=== PATIENT | female | born 1970 | race Hispanic/Latino ===

== ENCOUNTER → 2020-09-16 13:47 | Outpatient (CLI) | payer OTHER, SELFPAY ==
--- NOTE | ~2020-09-16 | US_ITS ---
EXAMINATION: US pelvic complete EXAM DATE: 09/16/2020 14:10 INDICATION: N85.2 - Hypertrophy of uterus . Pelvic pain and pressure. TECHNIQUE: Pelvic transabdominal and transvaginal sonogram was performed. There are multiple graysca le and Doppler images available for interpretation. There is no prior study for comparison. FINDINGS: Uterus measures 11.0 x 6.1 x 7.6 cm, with several fibroids measuring up to 4.8 cm. Endomet rial stripe measures 5 mm, within normal limits. There is no free pelvic fluid. Right adnexa: The ovary is not identified. There is no adnexal mass. Left adnexa: The ovary is not identified. There is no adnexal mass. IMPRESSION: 1. Fibroid uterus. Reviewed, dictated and finalized at location B. OMIMIST IMPRESSION: 1. Fibroid uterus.
== END ==
PROVIDERS: PCP Family Medicine; Visit Provider Family Medicine
DX: N85.2 Hypertrophy of uterus (principal); D25.9 Leiomyoma of uterus, unspecified
CPT/HCPCS: 76856

== ENCOUNTER 2021-08-05 08:02 | Outpatient (CLI) | payer OTHER, SELFPAY ==
--- NOTE | 2021-08-05 08:00 | ECG_ITS ---
Measurements Intervals [place] Rate: 66 P: 28 MT: 128 QRS: 9 QRSD: 97 T: 45 QT: 408 QTc: 430 Interpretive Statements SINUS RHYTHM BORDERLINE R WAVE PROGRESSION, ANTERIOR LEADS BASELINE WANDER- V6 BORDERLINE ECG Electronically Signed On 08-05-2021 8:26:40 PIZZA BAKER by Rm Kenney D.O.
[2021-08-05 08:40] LABS: Anion Gap 9 mmol/L (8-16); Blood Urea Nitrogen 16 mg/dL (7-17); Calcium 9.3 mg/dL (8.4-10.2); Carbon Dioxide 27 mmol/L (22-30); Chloride 100 mmol/L (98-107); Estimated Glomerular Filt Rate > 60; Glucose 104 mg/dL (65-110); Sodium 136 mmol/L (137-145)
== END 2021-08-05 08:03 | disposition home or self-care (01) ==
LOC: ANHSURGERY 08:06
PROVIDERS: Anesthesiology; PCP Family Medicine; Visit Provider Obstetrics & Gynecology
DX: D25.9 Leiomyoma of uterus, unspecified (principal); I10 Essential (primary) hypertension; Z79.899 Other long term (current) drug therapy; Z01.818 Encounter for other preprocedural examination; R94.31 Abnormal electrocardiogram [ECG] [EKG]
CPT/HCPCS: 36415; 80048; 86850; 86900; 86901; 93005

== ENCOUNTER 2021-09-13 10:32 | Outpatient (CLI) | payer OTHER, SELFPAY ==
[2021-09-13 11:30] LABS: Basophils Absolute Auto 0.1 K/mm3 (0.0-0.1); Basophils Percent Auto 0.9 % (0.2-1.2); Eosinophils Absolute Auto 0.5 K/mm3 (0-0.3); Eosinophils Percent Auto 7.6 % (0-4.4); Hematocrit 40.2 % (37.0-47.0); Hemoglobin 13.5 g/dL (12.0-15.0); Immature Granulocyte Absolute 0.02 K/mm3 (0.00-0.031); Immature Granulocyte Percent A 0.3 % (0-0.5); Lymphocytes Absolute Auto 2.05 K/mm3 (0.9-3.2); Lymphocytes Percent Auto 29.5 % (18.3-44.2); Mean Corpuscular HGB Conc 33.6 g/dl (32-36); Mean Corpuscular Hemoglobin 28.6 pg (26-34); Mean Corpuscular Volume 85.2 fl (80-100); Mean Platelet Volume 10.3 fl (7.4-10.4); Monocytes Absolute Auto 0.4 K/mm3 (0.1-0.6); Monocytes Percent Auto 5.2 % (2.6-8.5); Neutrophils Absolute Auto 3.9 K/mm3 (1.3-6.7); Neutrophils Percent Auto 56.5 % (45.5-73.1); Platelet Count Result 265 k/mm3 (150-375); Red Blood Count 4.72 M/mm3 (4.2-5.4); Red Cell Distribution Width 14.3 % (11.5-14.5); White Blood Count 6.9 K/mm3 (4.5-10.0)
== END 2021-09-13 10:33 | disposition home or self-care (01) ==
LOC: ANHSURGERY 10:35
PROVIDERS: PCP Family Medicine; Visit Provider Obstetrics & Gynecology
DX: D25.9 Leiomyoma of uterus, unspecified (principal); Z01.818 Encounter for other preprocedural examination
CPT/HCPCS: 36415; 85025; 86850; 86900; 86901

== ENCOUNTER 2021-09-16 00:35 | Day surgery (SDC) | payer OTHER, SELFPAY ==
[2021-09-12 14:26] VITALS: BMI 28.3
--- NOTE | 2021-09-12 14:33 | PC.NURSE ---
Report to the Outpatient Waiting Room, entrance under the green pavilion located off [facility], at time 8:00 on date 09/16/21. OR Time: 10:00. - You will be asked a series of questions to screen for COVID 19 for your protection. - A mask is required within the hospital. - No visitors are allowed at this time. Preoperative COVID Testing Requirements: No COVID Test needed if: (proof is required; if not received patient will have Rapid Test prior to entry) - Patient has received COVID Vaccine at least 14 days prior to procedure date or - Patient has positive COVID test result within last 90 days of surgery date. COVID Test needed if above criteria is not met Patients may have clear liquids (water, carbonated beverages, clear teas, apple juice) until 3 hours prior to surgery (7:00) with a maximum of 20 ounces. - No food from midnight until time of surgery Take the following medications with a SIP of water the morning of surgery: SERTRALINE Medications to discontinue per physician: N/A Date to take last dose: N/A Please no make-up, nail luxembourgish, hairspray, perfume, deodorant, or body powder the day of surgery. No jewelry (including any body piercings) or valuables the day of surgery, leave them at home. Please take a shower or bath the night before, or the morning of, surgery with an antibacterial soap. Wear comfortable, loose fitting clothing. - Jewelry must be removed prior to entering the operating room. Rings and piercings that are not removed may be cut off. - The hospital will not accept responsibility for valuables. - Please leave all valuables, including medications, at home the day of surgery. If you are going home after surgery, a licensed stock car driver must drive you home. - NO public transportation without another adult. - We recommend that an adult stay with you for 24 hours following discharge. - We also recommend that you do not drive, make important decision, drink alcoholic beverages, or take any drugs that were not prescribed by your health care provider for at least 24 hours after your discharge time. Follow any additional instructions given to you from your surgeon. Telephone instructions given to JASPER BROWNE and asked if any additional questions and then verbalized understanding. Patient advised to call surgeon office or pre surgery nurse liaison [phone] if any additional questions.
--- NOTE | 2021-09-14 07:50 | PM.IMHP ---
H&P: HPI History of Present Illness Date/Time: 09/14/21 07:50 51-year-old female admitted for robotic total vaginal hysterectomy and bilateral salpingectomies secondary to an enlarged uterus pelvic pain and heavy bleeding. This patient has had pain discomfort and dyspareunia for some time. She had a full workup by Dr. Bearden and actually had undergone a myomectomy in August of 2005 so scar tissue is expected. Her pain continues and her uterus is greater than 12 week size. Risks and benefits reviewed including but not exclusive of , aspiration pneumonia, bleeding, transfusion, perforation injury to bowel, bladder, ureters, or other internal organs with need for open laparotomy. She received the ACOG handout entitled hysterectomy as well as the de Matthew handout. She had all questions answered and asked to proceed Chief Complaint: Symptomatic uterine fibroids Review of Systems Review of Systems: All systems reviewed & are unremarkable except as noted in HPI and below PMFSH Past Medical History Medical History MDD (major depressive disorder), recurrent episode Uterine fibroid Surgical History Surgical History H/O myomectomy Family History Family History Mother Hypertension Family history of osteoarthritis Family history of elevated blood lipids Father Family history of cardiomyopathy Family history of coronary artery disease Other Cerebrovascular accident Family history of allergic disorder Family history of arthritis Family history of cardiovascular disease Social History Social History Social History: Single Smoking status: Never smoker Second hand tobacco smoke exposure: No Alcohol intake: current Alcohol use details: 1/MONTH Substance use: never Substance use type: does not use Gender identity (if verbalized by the patient): Female Sexual Orientation (if Verbalized by the Patient): Straight or Heterosexual Spiritual care concerns: No Meds Home Medications and Allergies Home Medications Medication Instructions Recorded Confirmed Type sertraline 50 mg tablet 50 mg PO DAILY #90 tablet 12/13/20 09/12/21 Rx losartan 50 mg-hydrochlorothiazide 1 tablet PO DAILY #90 tablet 04/22/21 09/12/21 Rx 12.5 mg tablet Allergies Allergy/AdvReac Type Severity Reaction Status Date / Time soy Allergy Intermediate THROAT Verified 09/12/21 14:25 SWELLING No Known Drug Allergies Allergy Mild Unknown Verified 09/12/21 14:25 ALMONDS Allergy Intermediate THROAT Uncoded 09/12/21 14:25 SWELLING MELONS Allergy Intermediate THROAT Uncoded 09/12/21 14:25 SWELLING Exam Const: General: no acute distress Eyes: General: appearance normal, both eyes and all related structures Neck: Neck: supple and no JVD Thyroid: thyroid normal Resp: Effort & Inspection: normal respiratory effort Auscultation: clear to auscultation bilaterally Cardio: Rate: regular rate Rhythm: regular rhythm GI: Inspection: non-distended GI Palp: Yes Soft to palpation, No Tenderness to palpation present (GI) and No Guarding due to palpation present (GI) Auscultation: normal bowel sounds : External Female Exam: normal external appearance Speculum Exam - Vagina: normal appearance of the vagina Speculum Exam - Cervix: normal appearance of the cervix Bimanual exam- vagina & uterus: enlarged, fixed and Uterine tenderness Bimanual Exam- Adnexa, other: no masses Skin: General skin exam: no rashes or lesions noted Extrem: General: normal to inspection and no edema Psych: Mental Status: mental status grossly normal Affect: normal affect Assessment and Plan Additional Plan Impression: Symptomatic uterine fibroids with pelvic pain and heavy bleeding Plan: Robotic tot
[2021-09-16] VITALS (12 sets, daily range): BP systolic 88–161; BP diastolic 50–105; PULSE 79–102; RESP 18–26; TEMP 36.3–37; O2SAT 92–99
--- NOTE | 2021-09-16 07:12 | WPDHPUPDATE1 ---
History and Physical Update Update Date/Time: 09/16/21 07:12 History and Physical has been reviewed, including an updated exam of the patient. There are NO changes in the patient's condition. Risks, benefits, and alternatives have been discussed and questions answered. Patient agrees to proceed with procedure.
[2021-09-16] MEDS: ACETAMINOPHEN 500 MG TABLET 1000 MG PO (08:00)
[2021-09-16] MEDS: KETOROLAC 15 MG/ML VIAL (*BKC) IV PUSH ×2 (08:21→13:45)
--- NOTE | 2021-09-16 08:37 | WPDANESEPPF ---
Anes - Initial Pre Proc Eval Procedure: Operation Date: 09/16/21 09:30 Proposed Procedures p Robotic Assisted Total Vaginal Hysterectomy with Bilateral Salpingectomy - Bert Zambrano MD Date/Time: 09/16/21 08:37 Surgeon: Bert Zambrano MD Pre Op Diagnosis: enlarge uterus, pelvic pain, fibroids, heavy bleed Patient Data Age: 51 Gender: F Height: 1.57 m Weight: 74.6 kg Last Vital Signs Temp 37.0 C 09/16/21 08:10 Pulse 84 09/16/21 08:10 Resp 18 09/16/21 08:10 BP 154/94 H 09/16/21 08:10 Pulse Ox 96 09/16/21 08:10 Allergies Allergy/AdvReac Type Severity Reaction Status Date / Time soy Allergy Intermediate THROAT Verified 09/16/21 07:46 SWELLING No Known Drug Allergies Allergy Mild Unknown Verified 09/16/21 07:46 ALMONDS Allergy Intermediate THROAT Uncoded 09/16/21 07:46 SWELLING MELONS Allergy Intermediate THROAT Uncoded 09/16/21 07:46 SWELLING Home Medications Medication Instructions Recorded Confirmed Type sertraline 50 mg tablet 50 mg PO DAILY #90 tablet 12/13/20 09/16/21 Rx losartan 50 mg-hydrochlorothiazide 1 tablet PO DAILY #90 tablet 04/22/21 09/16/21 Rx 12.5 mg tablet hydrocodone-acetaminophen 1 tablet PO Q4H PRN #30 tablet 09/16/21 Rx Patient hx anesthesia problems: none Family hx anesthesia problems: none Results Review: All pre-operative results and documents have been reviewed as part of the pre-operative evaluation. [facility] Past Medical History Medical History (Updated 09/16/21 @ 08:35 by David Kelly DO) Benign essential HTN MDD (major depressive disorder), recurrent episode RASHIDA (obstructive sleep apnea) Uterine fibroid Surgical History Surgical History H/O myomectomy Family History Family History Mother Hypertension Family history of osteoarthritis Family history of elevated blood lipids Father Family history of cardiomyopathy Family history of coronary artery disease Other Cerebrovascular accident Family history of allergic disorder Family history of arthritis Family history of cardiovascular disease Social History Social History Social History: Single Smoking status: Never smoker Second hand tobacco smoke exposure: No Alcohol intake: current Alcohol use details: 1/MONTH Substance use: never Substance use type: does not use Living arrangements: alone Gender identity (if verbalized by the patient): Female Sexual Orientation (if Verbalized by the Patient): Straight or Heterosexual Spiritual care concerns: No Anes - Eval Final PreProcedure Day of Procedure 09/16/21 08:37 Patient weight: obese Heart: regular rate and rhythm Lungs: clear to auscultation and normal air movement Airway: Mallampati scale class II Neurological: alert and oriented Last oral intake: >/= 8 hours ASA classification: III Emergent: no Anesthetic plan: proceed Anesthesia type and monitoring: general ETT and standard monitoring Results Review: All pre-operative results and documents have been reviewed as part of the pre-operative evaluation. Informed Consent: The patient's anesthetic plan and its attendant risks and benefits were discussed with the patient/family/POA. Questions were solicited and answers provided to the satisfaction of the patient/family/POA.
[2021-09-16] MEDS: LACTATED RINGERS 1,000 ML 30 ML IV CONT ×3 (08:54→12:24)
--- NOTE | 2021-09-16 08:57 | SUR.PREOP ---
NEG U PREG TEST
--- NOTE | 2021-09-16 09:12 | SUR.PREOP ---
0910 PT VOIDED PRIOR TO OR
[2021-09-16] MEDS: SCOPOLAMINE 1.5 MG PATCH TRANSDERM (09:20)
[2021-09-16] MEDS: ceFAZolin 2 GM/D5W 50 ML 2 GM/50 ML BAG IVPB (09:27)
--- NOTE | 2021-09-16 12:02 | W.PM.PROC2 ---
Procedure Note - Detailed Date of Procedure 09/16/21 Pre-op Diagnosis enlarge uterus, pelvic pain, fibroids, heavy bleed Post-op Diagnosis other (Extensive adhesions) Procedure Performed Robotic total vaginal hysterectomy salpingectomy/extensive lysis of adhesions Surgeon Bert Zambrano MD Anesthesia general Indications This is a 51-year-old female with previous myomectomy with a large painful heavy bleeding secondary to uterine fibroids. Findings The uterus was large irregular with multiple large fibroids. Normal-appearing ovaries were seen. The adhesions were seen visually completely encasing the uterus in the posterior cul-de-sac which was opened. The ovaries basically appeared within normal limits but the remainder the pelvis was riddled with large irregular, contour fibroids. Description of Procedure The patient was prepped draped in the normal sterile fashion placed in dorsal lithotomy position. Under excellent general trach anesthesia weighted speculum placed posterior fornix vagina. Anterior lip of the cervix grasped with single-tooth tenaculum the uterus sounded to 10cm. Serial dilatation with fragmented dilators performed followed passes the 10. SEMAJ and the 2. 0.5 cold cup. Next the 16 [place] catheter was placed in the bladder and drained clear urine. The weighted speculum and the single-tooth removed with the remainder the instruments in. Gloves were changed A supraumbilical incision made the Veress needle passed in the abdomen. The abdomen filled with CO2 gas [id number] the 12mm trocar was advanced after Colby placing 0 Vicryl at each angle of the fascia to be used later for closure. Patient placed in Trendelenburg and left and right lower quadrant incision made the 8mm trocars advanced under direct visualization assuring no injury. The right upper quadrant incision made the 8mm trocar advanced under direct visualization assuring no injury. The robot was docked. Attention was turned to the console next. Multiple adhesions were seen anteriorly from the omentum stuck to the anterior wall and over the uterus and ovaries and tubes. Using sharp dissection this was sharply dissected away. The large irregular uterus was difficult to move secondary to the previous scarring that was present in the posterior cul-de-sac from her previous myomectomy. Using careful sharp dissection this was cleared irrigation was undertaken until the cul-de-sac was open. The ovaries were markedly adherent to the uterus medially and using sharp dissection with the careful dissection these were to allow for retaining the ovaries. The left fallopian tube was easily seen and was sharply dissected and the right upper quadrant incision. The right fallopian tube was more difficult and was taken piecemeal and removed through the right upper quadrant. The round ligament on the right was very difficult to discern it was essentially grasped burned and anteriorly a bladder flap was formed the bladder was markedly adherent anterior to the abdominal wall in layer by layer this was brought down being careful to avoid injury to the bladder to the opposite round ligament which was eventually grasped burned and cut. The left utero-ovarian ligament was then skeletonized with some difficulty clamped burned cut and brought to the level of previously cut round ligament in like fashion a the utero-ovarian ligament on the right was skeletonized. A large lateral fibroid was present and the peritoneum was sharply dissected to reveal no loss underlying vascular or ureteral structure present. And once this was able to be grasped was clamped burned and brought to the previous the cut round ligament. The cardinal and broad ligaments on the left were then serially skeletonized brought down the lateral edge of the uterus clamped burned cut until the uterine vessels could be seen on the right these were large tortuous and individually clamped burned and cut. In like fashion the ca
[2021-09-16] MEDS: fentaNYL CITRATE INJ (*CRX) 100 MCG/2 ML VIAL 25 MCG IV PUSH ×4 (12:43→14:04)
--- NOTE | 2021-09-16 13:57 | SUR.PHASEI ---
1652 sbar faxed floor notified
--- NOTE | 2021-09-16 14:43 | ADMGEN ---
1426-This patient, Lexie Kaur, was admitted to OB 2nd Floor Room 284-00. Patient/family oriented to hospital policies and general routines including ID bracelet, bed and alarms, visiting hours, pain management, procedures, bathroom and other care routines, personal items, smoking policy, room service/diet, and visiting hours. Information on how to activate the Rapid Response Team has been discussed. Patient/Family are encouraged to report perceived risks to care and to ask questions if they do not understand what they are told or what they should do.
[2021-09-16] MEDS: DEXTROSE 5%/LACTATED RINGERS 1,000 ML 125 ML IV CONT (14:54)
[2021-09-16] MEDS: HYDROcodone/acetaminophen (*CRX) 10-325 MG TABLET 1 TAB PO ×2 (14:57→17:58)
[2021-09-16] MEDS: DOCUSATE SODIUM 100 MG CAPSULE PO (17:58)
[2021-09-16] MEDS: ONDANSETRON INJ 4 MG/2 ML VIAL IV PUSH (18:44)
[2021-09-16] MEDS: KETOROLAC 30 MG/ML VIAL (*BKC) IV PUSH (19:03)
[2021-09-17] VITALS: BP 156/93; PULSE 87; RESP 18; TEMP 36.7; O2SAT 96
[2021-09-17] MEDS: HYDROcodone/acetaminophen (*CRX) 5-325 MG TABLET 1 TAB PO ×2 (03:58→10:06)
[2021-09-17] MEDS: IBUPROFEN 600 MG TABLET PO ×2 (03:58→10:07)
[2021-09-17 04:00] VITALS: BP 152/80; PULSE 78; RESP 16; TEMP 36.6; O2SAT 94
[2021-09-17 05:50] LABS: Basophils Absolute Auto 0.1 K/mm3 (0.0-0.1); Basophils Percent Auto 0.7 % (0.2-1.2); Eosinophils Percent Auto 0.2 % (0-4.4); Hemoglobin 11.6 g/dL (12.0-15.0); Immature Granulocyte Absolute 0.05 K/mm3 (0.00-0.031); Immature Granulocyte Percent A 0.4 % (0-0.5); Lymphocytes Absolute Auto 1.79 K/mm3 (0.9-3.2); Lymphocytes Percent Auto 14.9 % (18.3-44.2); Mean Corpuscular HGB Conc 33.1 g/dl (32-36); Mean Corpuscular Hemoglobin 28.8 pg (26-34); Mean Corpuscular Volume 86.8 fl (80-100); Mean Platelet Volume 11.1 fl (7.4-10.4); Monocytes Absolute Auto 1.2 K/mm3 (0.1-0.6); Monocytes Percent Auto 9.7 % (2.6-8.5); Neutrophils Absolute Auto 8.9 K/mm3 (1.3-6.7); Neutrophils Percent Auto 74.1 % (45.5-73.1); Platelet Count Result 207 k/mm3 (150-375); Red Blood Count 4.03 M/mm3 (4.2-5.4); Red Cell Distribution Width 14.6 % (11.5-14.5)
--- NOTE | 2021-09-17 08:33 | P.DS_ITS ---
DS: Admitting Diagnosis Discharge Date 09/17/2021 Admitting Diagnosis Symptomatic uterine fibroids with the excessive bleeding and pelvic pain DS: Summary Hospital Course Hospital Course: Patient was admitted for robotic total vaginal hysterectomy and bilateral salpingectomy. It was noted to have large irregular uterine fibroids and large amount pelvic adhesions which required extensive adhesional lysis. Please see the operative report for full details. Her hospital course was unremarkable. She remained afebrile. She was up, voiding without difficulty, ambulating, and generally without complaints. Time Spent with Patient Time attestation: Total time spent providing and/or coordinating discharge services: Exam Const: General: no acute distress Eyes: General: appearance normal, both eyes and all related structures Neck: Neck: supple and no JVD Thyroid: thyroid normal Resp: Effort & Inspection: normal respiratory effort Auscultation: clear to auscultation bilaterally Cardio: Rate: regular rate Rhythm: regular rhythm GI: Inspection: non-distended GI Palp: Yes Soft to palpation, No Tenderness to palpation present (GI) and No Guarding due to palpation present (GI) Auscultation: normal bowel sounds : General: Yes bladder normal to palpation External Female Exam: normal external appearance Speculum Exam - Vagina: normal vaginal discharge and No vaginal bleeding Speculum Exam - Cervix: nontender Bimanual exam- vagina & uterus: bladder normal to palpation and No Cervical tenderness present OB/external & speculum: No vaginal bleeding Skin: General skin exam: no rashes or lesions noted Extrem: General: normal to inspection and no edema Psych: Mental Status: mental status grossly normal Affect: normal affect DS: Data Data Completed and Pending Pending studies at discharge: Pending at discharge 09/16/21 11:00 Surgical [PTH] Routine Labs on day of discharge: Labs from last 24 hours 09/17/21 04:07 WBC 12.0 H RBC 4.03 L Hgb 11.6 L Hct 35.0 L MCV 86.8 MCH 28.8 MCHC 33.1 RDW 14.6 H Plt Count 207 MPV 11.1 H Immature Gran % (Auto) 0.4 Neut % (Auto) 74.1 H Lymph % (Auto) 14.9 L [place] % (Auto) 9.7 H Eos % (Auto) 0.2 Baso % (Auto) 0.7 Lymph # (Auto) 1.79 [place] # (Auto) 1.2 H Eos # (Auto) 0.0 Baso # (Auto) 0.1 Abs Immat Gran (auto) 0.05 H Absolute Neuts (auto) 8.9 H Absolute Nucleated RBC 0.0 Nucleated RBC % 0.0 Discharge Plan Discharge Patient Disposition: Home, Self-Care Discharge Instructions: Remove the Scopolamine patch that was placed behind your ear in 72 hours or less. Wash your hands after touching. Stand Alone Forms: General Discharge Instructions Follow-up/Referrals: Bert Zambrano MD [Physician] - Discharge Medications: New hydrocodone-acetaminophen 5-325 mg tablet 1 tablet PO Q4H PRN (Reason: pain) Qty: 30 RF: 0 No Action sertraline 50 mg tablet 50 mg PO DAILY Qty: 90 RF: 2 losartan-hydrochlorothiazide 50-12.5 mg tablet 1 tablet PO DAILY Qty: 90 RF: 1
--- NOTE | 2021-09-17 08:34 | PM.GYNPNOP ---
IRRIGATION TEACHER - A/P Postoperative Procedures: Procedures Operation Date: 09/16/21 09:30 Actual Procedure Side Surgeon p Robotic Assisted Total Vaginal Hysterectomy with Bilateral Salpingectomy,Extensive Lysis of Adhesions Bilateral Bert Zambrano MD Postoperative day: 1 Postoperative status: doing well Postoperative plan: routine post-op care, see orders, advance diet and discharge Time Spent With Patient Time: Total time spent is greater than 50% in coordination of care (as documented) at patient's floor/unit and/or counseling patient: Time with patient: less than 15 minutes IRRIGATION TEACHER- PN:Subj Post-Op Subjective Date/time seen: 09/17/21 08:34 Subjective: patient reports feeling better, patient has no complaints and patient desires discharge Review of Systems Review of Systems: All systems reviewed & are unremarkable except as noted in HPI and below Exam Const: General: no acute distress Eyes: General: appearance normal, both eyes and all related structures Neck: Neck: supple and no JVD Thyroid: thyroid normal Resp: Effort & Inspection: normal respiratory effort Auscultation: clear to auscultation bilaterally Cardio: Rate: regular rate Rhythm: regular rhythm GI: Inspection: normal to inspection and incision (Clean dry and intact) Percussion: Yes normal to percussion Auscultation: normal bowel sounds : External Female Exam: normal external appearance Speculum Exam - Vagina: vaginal bleeding (No vaginal bleeding seen) Skin: General skin exam: no rashes or lesions noted Extrem: General: normal to inspection and no edema Psych: Mental Status: mental status grossly normal Affect: normal affect IRRIGATION TEACHER - PN: Obj Data Vital Signs Vital Signs: Vital Signs - 24 hr 09/16/21 12:16 09/16/21 12:30 09/16/21 12:45 Temperature 97.4 F L Pulse Rate 80 94 86 Respiratory Rate 26 H 26 H 18 Blood Pressure 88/50 L 114/73 121/77 Pulse Oximetry 94 95 96 09/16/21 13:00 09/16/21 13:15 09/16/21 13:30 Temperature Pulse Rate 96 102 H 79 Respiratory Rate 24 H 20 20 Blood Pressure 127/78 122/84 108/70 Pulse Oximetry 97 98 92 09/16/21 13:45 09/16/21 14:00 09/16/21 14:30 Temperature 97.7 F Pulse Rate 80 96 100 Respiratory Rate 20 20 18 Blood Pressure 129/79 125/83 137/77 Pulse Oximetry 95 95 93 09/16/21 15:10 09/16/21 19:05 09/17/21 00:00 Temperature 97.9 F 98.0 F Pulse Rate 96 94 87 Respiratory Rate 20 18 18 Blood Pressure 161/105 H 156/93 H Pulse Oximetry 95 99 96 09/17/21 04:00 Temperature 97.8 F Pulse Rate 78 Respiratory Rate 16 Blood Pressure 152/80 H Pulse Oximetry 94 Intake/Output Intake/Output: Intake & Output 09/14/21 09/15/21 09/16/21 09/17/21 23:59 23:59 23:59 23:59 Intake Total 1283 Output Total 960 1000 Balance 323 -1000 Meds/Results Medications: Active Medications Generic Name Dose Route Start Last Admin Trade Name Freq PRN Reason Stop Dose Admin Hydrocodone Bitart/Acetaminophen 1 tab 09/16/21 14:20 09/17/21 03:58 Hydrocodone/Acetaminophen (*Crx) 5-325 Mg Tablet PO 1 tab Q3H PRN Administration Pain Rated 5 or Less Hydrocodone Bitart/Acetaminophen 1 tab 09/16/21 14:20 09/16/21 17:58 Hydrocodone/Acetaminophen (*Crx) 10-325 Mg Tablet PO 1 tab Q3H PRN Administration Pain Rated 6 or Greater Docusate Sodium 100 mg 09/16/21 17:00 09/16/21 17:58 Docusate Sodium 100 Mg Capsule PO 100 mg BID ZAK Administration Enoxaparin Sodium 40 mg 09/17/21 09:00 Enoxaparin 40 Mg/0.4 Ml Syringe SUB-Q DAILY ZAK Ibuprofen 600 mg 09/16/21 14:20 09/17/21 03:58 Ibuprofen 600 Mg Tablet PO 600 mg Q6H PRN Administration Cramping Ketorolac Tromethamine 30 mg 09/16/21 14:20 09/16/21 19:03 Ketorolac 30 Mg/Ml Vial (*Bkc) IV PUSH 09/21/21 14:19 30 mg Q6H PRN Administration Pain Rated 4-6 Losartan Potassium 50 mg 09/17/21 09:00 Losartan Potassium 50 Mg Tablet PO DAILY [facility] Naloxone HCl 0.1
[2021-09-17] MEDS: LOSARTAN POTASSIUM 50 MG TABLET PO (10:06)
[2021-09-17] MEDS: ENOXAPARIN 40 MG/0.4 ML SYRINGE SUB-Q (10:07)
[2021-09-17 10:22] VITALS: BP 156/94; PULSE 92; RESP 16; TEMP 37; O2SAT 92
--- NOTE | 2021-09-17 10:30 | P.PNAN_ITS ---
Anes - Prog Note Post-Op Date/Time: 09/17/21 10:30 Cardiovascular status: normal Respiratory status: normal Airway patency: baseline Mental status: baseline Post-Op hydration status: normal Vital Signs: Last Vital Signs Temp 36.6 C 09/17/21 04:00 Pulse 78 09/17/21 04:00 Resp 16 09/17/21 04:00 BP 152/80 H 09/17/21 04:00 Pulse Ox 94 09/17/21 04:00 Pain Score (VAS): 09/12 I/O: Intake & Output 09/16/21 09/17/21 09/17/21 23:59 07:59 15:59 Intake Total 483 Output Total 500 1000 Balance -17 -1000 Laboratory Tests 09/17/21 04:07 09/17/21 04:07 WBC 12.0 H RBC 4.03 L Hgb 11.6 L Hct 35.0 L MCV 86.8 MCH 28.8 MCHC 33.1 RDW 14.6 H Plt Count 207 MPV 11.1 H Immature Gran % (Auto) 0.4 Neut % (Auto) 74.1 H Lymph % (Auto) 14.9 L [place] % (Auto) 9.7 H Eos % (Auto) 0.2 Baso % (Auto) 0.7 Lymph # (Auto) 1.79 [place] # (Auto) 1.2 H Eos # (Auto) 0.0 Baso # (Auto) 0.1 Abs Immat Gran (auto) 0.05 H Absolute Neuts (auto) 8.9 H Absolute Nucleated RBC 0.0 Nucleated RBC % 0.0 Post-procedural complaints: none Patient Feedback: Patient satisfied with anesthetic care.
== END 2021-09-17 13:28 | disposition home or self-care (01) ==
LOC: ANHSURGERY 07:28 → ANHOB2 14:23
PROVIDERS: PCP Family Medicine; Visit Provider Obstetrics & Gynecology
PROC: (CPT 58554; principal; 2021-09-16 09:30)
DX: D25.0 Submucous leiomyoma of uterus (principal); D25.1 Intramural leiomyoma of uterus; D25.2 Subserosal leiomyoma of uterus; N80.0 Endometriosis of uterus; N83.8 Other noninflammatory disorders of ovary, fallopian tube and broad ligament; R10.2 Pelvic and perineal pain; I10 Essential (primary) hypertension; F33.9 Major depressive disorder, recurrent, unspecified; G47.33 Obstructive sleep apnea (adult) (pediatric); E66.9 Obesity, unspecified; Z68.30 Body mass index [BMI] 30.0-30.9, adult
CPT/HCPCS: 58554; S2900; 36415; 85025; 88307; 99199; A9270; J0360; J0690; J1100; J1650; J1885; J2250; J2270; J2370; J2405; J2704; J2710; J2765; J3010; J7030; J7120; J7121

== ENCOUNTER → 2023-04-26 12:43 | Outpatient (CLI) | payer OTHER, SELFPAY ==
--- NOTE | ~2023-04-26 | MM_ITS ---
EXAMINATION: MM screening yury BI w anna HISTORY: Screening mammogram TECHNIQUE: Craniocaudal and mediolateral oblique 3-D tomosynthesis images were obtained and synthetic 2-D images were generated. CAD analysis was submitted and interpreted. COMPARISON: 05/03/2017 bilateral screening mammogram BREAST PARENCHYMAL COMPOSITION: The breasts are extremely dense, which lowers the sensitivity of mamm ography. FINDINGS: There is no evidence of suspicious mass, calcification, or architectural distortion to sugg est malignancy in either breast. There has been no suspicious interval change. IMPRESSION: 1. No mammographic evidence of malignancy. 2. Recommend routine screening mammography in one year. BI-RADS Category 1: Negative Reviewed, dictated and finalized at location A.
== END ==
PROVIDERS: PCP Family Medicine; Visit Provider Family Medicine
DX: Z12.31 Encounter for screening mammogram for malignant neoplasm of breast (principal)
CPT/HCPCS: 77063; 77067